=== PATIENT | male | born 1960 | race Caucasian/White ===

== ENCOUNTER → 2017-08-05 | Day surgery (SDC) | payer OTHER ==
--- NOTE | 2017-08-04 16:50 | History & Physical Pre-Op ---
General Information and HPI History of Present Illness: Shreyas is a 57-year-old male with a long-standing and worsening complaint of heel pain right foot. The patient has undergone an extended course of conservative care, including shoe gear and activity modification, rest, immobilization and courses of NSAIDs. None of this is yielded him any significant relief. The patient presented today for preoperative surgical consultation. Allergies/Medications Allergies: Coded Allergies: No Known Allergies (12/15/15) Home Med list Levothyroxine Sodium 50 MCG TABLET 1 TAB PO DAILY THYROID (Reported) Losartan (Cozaar) 100 MG TABLET 1 TAB PO DAILY BP (Reported) Past History Surgical History Pertinent Surgical History: non-contributory Review of Systems Review of Systems: Unremarkable except for that noted to his present illness Exam & Diagnostic Data Physical Exam: Lungs clear bilaterally. Heart sounds rate and rhythm regular. Lower extremity physical exam demonstrates intact pedal pulses bilaterally. Pulses dorsalis pedis and posterior tibial arteries are palpable bilaterally. Patient without any sensory motor deficits. Deep tendon reflexes grossly intact. Patient noted estimated pain with palpation of plantar medial aspect of the right heel. Negative Tinel sign noted with percussion the posterior tibial nerve. Ankle range of motion noted to be diminished, especially in dorsiflexion. Assessment/Plan Assessment/Plan: Plantar fasciitis right foot. A lengthy discussion reviewing both surgical and conservative options with the patient at bedside and the patient elects to go forward surgery despite the risks. As Ranked By This Provider Problem List: 1. Plantar fascial fibromatosis Attending MD Review Statement Attending Statement Attending MD Statement: examined this patient
[~2017-08-05] VITALS: Ht 175.3 cm; Wt 99.8 kg
[~2017-08-05] MED LIST: COZAAR100 M1 PO; CYCLOBENZAPRINE5 M2 PO; LAMISIL250 M1 PO; LEVOTHYROXINE50 MCG PO
--- NOTE | 2017-08-05 15:37 | Operative Report ---
Operative/Inv Procedure Report Surgery Date: 08/05/17 Name of Procedure: 1 gastrocnemius recession right 2 plantar fasciotomy right 3 plantar fasciectomy right 4 intraoperative administration of ankle block anesthesia Pre-Operative Diagnosis: 1 gastrocnemius equinus right 2 plantar fasciitis right Post-Operative Diagnosis: The same Estimated Blood Loss: scant Surgeon/[facility] Lead: Carlos Mccabe DPM Anesthesia: moderate sedation, block Operative/Procedure Note Note: After obtaining informed consent the patient was brought to the operating room and placed on the operating table in the supine position. The patient isn't securely fastened to the operating table utilizing safety belt. After administration of IV sedation, 10 mL of 0.5% Marcaine plain was obtained about the patient's right ankle. Well-padded calf tourniquet was placed about the patient's right upper calf. The right foot lower extremity within scrubbed prepped and draped in usual aseptic manner. 2 g of Ancef were delivered intravenously times one dose. Right lower extremity was elevated to examine to limb, which point the calf tourniquet inflated 250 mmHg. Attention directed distal right leg, where a linear incision was made 2 finger just distal medial have a gastrocnemius muscle dissection was then carried out medial margin of the gastroc fascia. An interval was then developed between the peritenon and the fascia. The sural nerve was identified protected. A gastrocnemius recession was then performed. The deep tissues reports a 4-0 Vicryl skin is reprepped for nylon. Attention was then directed to the plantar medial heel, where the tissue was ablated overlying the origin of the medial slip of the plantar fascia. Portals well-developed at 5 mm intervals utilizing a sterile 62 K wire. The tissue was then ablated with the [employer] micro-ablator delivering 4 W of radiofrequency energy. Dissection was then carried down to the medial margin of the plantar fascia which was sectioned from its origin on the medial tubercle calcaneal tuberosity. The incision was closed with 4-0 nylon. Incision was dressed with [employer] [place] dressings and Coban. The patient was noted tolerate both procedure and anesthesia well and the patient was transported from the operating room to recovery by sent stable best assess intact all digits right foot.
== END ==
LOC: STS 00:43
DX: M21.6X1 Other acquired deformities of right foot (principal); M72.2 Plantar fascial fibromatosis; I10 Essential (primary) hypertension; B19.20 Unspecified viral hepatitis C without hepatic coma; E03.9 Hypothyroidism, unspecified
CPT/HCPCS: J0690; J2001; J2250

== ENCOUNTER 2017-08-17 10:50 | Emergency (ER) | payer OTHER ==
[~2017-08-17] VITALS: Ht 175.3 cm; Wt 99.8 kg
[2017-08-17 10:57] VITALS: BP 137/86
--- NOTE | 2017-08-17 11:03 | ED ANIMAL BITE/WOUND CHECK ---
History of Present Illness General Chief Complaint: Suture Removal/Wound Recheck Stated Complaint: SUTURE REMOVAL Source: patient Exam Limitations: no limitations Vital Signs & Intake/Output Vital Signs & Intake/Output Vital Signs Date Time Temp Pulse Resp B/P B/P Pulse O2 O2 Flow FiO2 Mean Ox Delivery Rate 08/17 1057 95.7 58 18 137/86 98 Room Air Allergies Coded Allergies: No Known Allergies (12/15/15) Reconcile Medications Levothyroxine Sodium 50 MCG TABLET 1 TAB PO DAILY THYROID (Reported) Losartan (Cozaar) 100 MG TABLET 1 TAB PO DAILY BP (Reported) Triage Note: HERE FOR SUTURE REMOVAL (2 SUTURE) R LOWER LEG. PLACED ON 08/05. Triage Nurses Notes Reviewed? yes Onset: Gradual Duration: week(s): (2) Timing: no prior history Injury Environment: home Is Injury an Animal Bite? No No Modifying Factors: none HPI: Patient is a 57-year-old male presenting to the emergency Department chief complaint of suture removal. He had sutures placed about 2 weeks ago, went to [place] and forgot to have them removed. Denies any increased pain swelling or discharge from the site. No fevers or chills. Past History Travel History Traveled to [place] past 21 day No Medical History Any Pertinent Medical History? see below for history Neurological: NONE EENT: NONE Cardiovascular: NONE Respiratory: NONE Gastrointestinal: NONE Hepatic: NONE Renal: NONE Musculoskeletal: NONE Psychiatric: NONE Endocrine: NONE Surgical History Surgical History: non-contributory Psychosocial History What is your primary language Amharic Tobacco Use: Never used ETOH Use: denies use Family History Hx Contributory? No Review of Systems Review of Systems Constitutional: Reports: no symptoms. Comments Review of systems: See HPI, All other systems negative. Constitutional, no chills fever or weight loss HEENT: No visual changes no sore throat no congestion Cardiovascular: No chest pain ,palpitation Skin, no jaundice no rashes Respiratory: No dyspnea cough sputum GI: No nausea no vomiting Muscle skeletal: no back pain, no neck pain, Neurologic: No numbness no confusion Psych: No stress anxiety Immunology: No splenectomy or history of AIDS Physical Exam Physical Exam General Appearance: well developed/nourished, no apparent distress, alert, awake , comfortable Comments: Well-developed well-nourished person in no acute distress HEENT: Atraumatic, normocephalic Neck: Normal inspection Respiratory: No respiratory distress. Extremity: No edema Neuro: Alert oriented x3 Skin: 2 sutures placed in right lower extremity, no surrounding erythema or edema. Psych: Mood and affect is normal, memory and judgment is normal. Progress Differential Diagnosis: wound check Plan of Care: 2 sutures removed without difficulty. Departure Departure Time of Disposition: 1101 Disposition: HOME OR SELF CARE Condition: Stable Clinical Impression Primary Impression: Visit for suture removal Referrals: Zohreh Augustin APRN (PCP/Family) Additional Instructions: Follow-up with primary care physician call to make an appointment. Return for worsening symptoms or concerns. Keep area clean. Departure Forms: Customer Survey General Discharge Information
== END 2017-08-17 11:39 ==
LOC: ERH 10:50
DX: Z48.02 Encounter for removal of sutures (principal)